=== PATIENT | female | born 1930 | race Caucasian/White ===

== ENCOUNTER 2018-07-11 15:25 | Emergency (ER) | payer MEDICARE, OTHER ==
[2018-07-11 17:07] LABS: #Lymphocytes 0.8 thou/uL (1.20-3.40); #Monocytes 0.6 thou/uL (0.11-0.59); #Neutrophils 6.5 thou/uL (1.40-6.50); %Basophils 0.1 % (0.0-1.0); %Eosinophils 0.4 % (0.0-10.0); %Lymphocytes 10.3 % (21.0-51.0); %Monocytes 7.4 % (0.0-10.0); %Neutrophils 81.8 % (42.0-75.0); Mean Corpuscular HGB CONC 31.9 g/dL (32.0-36.0); Mean Corpuscular Hemoglobin 30.3 pg (27.0-31.0); Mean Corpuscular Volume 94.8 fL (78.0-98.0); Platelet Count 160 thou/uL (130-400); RBC Distribution Width 16.1 % (11.5-14.5); Red Blood Cell (RBC) Count 3.65 mill/uL (4.20-5.40); White Blood Cell (WBC) Count 7.9 thou/uL (4.8-10.8)
--- NOTE | 2018-07-11 17:18 | RAD ---
AP PELVIS: HISTORY: Fall with left hip pain. FINDINGS: The bones appear somewhat demineralized. There are arthritic changes of the lower lumbar spine. Vas cular calcifications are noted. Moderate arthritic changes of the right hip are present. There are mild arthritic changes of the left hip. Some subtle irregularity to the left inferior pubi c ramus. This raises the possibility of a subtle occult fracture. Left hip films may be helpful in further assessment. IMPRESSION: Questionable nondisplaced left inferior pubic ramus fracture. POS: SAMANTHA
[2018-07-11 17:29] LABS: ALT (SGPT) 15 U/L (8-55); AST (SGOT) 23 U/L (5-34); Albumin 3.8 g/dL (3.4-4.8); Alkaline Phosphatase 85 U/L (40-150); Anion Gap 15 mmol/L (10-20); BUN (Urea Nitrogen) 38 mg/dL (9.8-20.1); Bilirubin, Total 1.2 mg/dL (0.2-1.2); Calc. Creatinine Clearance 0 mL/min (70-130); Calcium 10.4 mg/dL (7.8-10.44); Carbon Dioxide 30 mmol/L (23-31); Chloride 95 mmol/L (98-107); Estimated GFR-MDRD 20; Globulin 2.7 g/dL (2.4-3.5); Glucose 131 mg/dL (83-110); Potassium 3.5 mmol/L (3.5-5.1); Protein, Total 6.5 g/dL (6.0-8.3); Sodium 136 mmol/L (136-145)
[2018-07-11 18:08] LABS: Bilirubin Negative (Negative); Blood, Urine Negative (Negative); Clarity CLEAR (Clear); Glucose, Urine (Dipstick) Negative (Negative); Leukocyte Negative (Negative); Nitrite Negative (Negative); Protein, Urine (Dipstick) Negative (Neg-Trace); Urobilinogen 0.2 mg/dL (0.2-1.0)
--- NOTE | 2018-07-11 18:13 | RAD ---
LEFT HIP TWO VIEWS: HISTORY: Fall with left hip pain. FINDINGS: The bones are demineralized. There is some mild arthritic change of the hip. There are no signs of any femoral neck fracture. There is some slight irregularity to the left inferior pubic ramus and so me subtle irregularity to the left side of the symphysis. These changes could represent subtle occul t areas of fracture. IMPRESSION: Findings that were suspicious for some subtle occult fractures along the left side of the symphysis a nd the left inferior pubic ramus. No evidence of any femoral neck fracture. Vascular calcifications are seen. POS: MARCUS
--- NOTE | 2018-07-11 18:14 | RAD ---
LEFT HUMERUS TWO VIEWS: HISTORY: Fall with pain in arm. FINDINGS: The bones are demineralized. There are no signs of fracture. IMPRESSION: No evidence of fracture. POS: MARCUS
--- NOTE | 2018-07-11 18:14 | RAD ---
LEFT SHOULDER THREE VIEWS: HISTORY: Fall with shoulder pain. FINDINGS: The bones are demineralized. There are some mild arthritic changes of the glenohumeral and AC joints . There are no signs of fracture or dislocation. IMPRESSION: No evidence of fracture. POS: SAMANTHA
--- NOTE | 2018-07-11 18:51 | CT ---
CT BRAIN WITHOUT CONTRAST: HISTORY: Fall. Patient on anticoagulants. FINDINGS: There are changes of cortical atrophy and chronic small vessel ischemic disease. The ventricular siz e is appropriate, and the basilar cisterns are patent. No evidence of acute infarct, hemorrhage, mid line shift, or abnormal extraaxial fluid collections are seen. The bony calvarium is intact. The vi sualized paranasal sinuses and mastoid air cells are well aerated. IMPRESSION: No CT evidence of acute intracranial process. POS: MONTEZA
--- NOTE | 2018-07-16 15:27 | EKG ---
Test Reason : Blood Pressure : / mmHG Vent. Rate : 080 BPM Atrial Rate : 083 BPM P-R Int : 000 ms QRS Dur : 078 ms QT Int : 394 ms P-R-T Axes : 000 -62 -30 degrees QTc Int : 454 ms Poor data quality, interpretation may be adversely affected Atrial fibrillation Left axis deviation Nonspecific T wave changes Abnormal ECG Confirmed by JUAN MANUEL LATHAM M.D. ([id number]), make up editor CYRUS VARGAS ([id number]) on 07/16/2018 3:26:49 PM Referred By: Confirmed By:JUAN MANUEL LATHAM M.D.
== END 2018-07-11 19:22 | disposition home or self-care (01) ==
LOC: ERS 15:25
DX: S32.592A Other specified fracture of left pubis, initial encounter for closed fracture (principal); I12.9 Hypertensive chronic kidney disease with stage 1 through stage 4 chronic kidney disease, or unspecified chronic kidney disease; N18.9 Chronic kidney disease, unspecified; D64.9 Anemia, unspecified; E78.5 Hyperlipidemia, unspecified; F03.90 Unspecified dementia, unspecified severity, without behavioral disturbance, psychotic disturbance, mood disturbance, and anxiety; Z79.899 Other long term (current) drug therapy; W17.89XA Other fall from one level to another, initial encounter
CPT/HCPCS: 36415; 70450; 72170; 80053; 81003; 85025; 93005

== ENCOUNTER 2018-08-15 23:10 | Inpatient (IN) | payer MEDICARE ==
[2018-08-16 00:21] LABS: #Eosinphils 0.1 thou/uL (0.0-0.7); #Lymphocytes 1.7 thou/uL (1.20-3.40); #Monocytes 0.5 thou/uL (0.11-0.59); #Neutrophils 3.9 thou/uL (1.40-6.50); %Basophils 0.2 % (0.0-1.0); %Eosinophils 1.1 % (0.0-10.0); %Lymphocytes 27.1 % (21.0-51.0); %Monocytes 8.6 % (0.0-10.0); Hemoglobin 12.3 g/dL (12.0-16.0); Mean Corpuscular HGB CONC 30.5 g/dL (32.0-36.0); Mean Corpuscular Hemoglobin 30.7 pg (27.0-31.0); Mean Platelet Volume 7.8 fL (7.4-10.4); Platelet Count 178 thou/uL (130-400); RBC Distribution Width 16.7 % (11.5-14.5); White Blood Cell (WBC) Count 6.2 thou/uL (4.8-10.8)
[2018-08-16 00:40] LABS: ALT (SGPT) 37 U/L (8-55); AST (SGOT) 50 U/L (5-34); Albumin 3.7 g/dL (3.4-4.8); Alkaline Phosphatase 164 U/L (40-150); Anion Gap 21 mmol/L (10-20); BUN (Urea Nitrogen) 41 mg/dL (9.8-20.1); Bilirubin, Total 1.6 mg/dL (0.2-1.2); CK (CPK) 68 U/L (29-168); Calc. Creatinine Clearance 0 mL/min (70-130); Calcium 10.2 mg/dL (7.8-10.44); Carbon Dioxide 16 mmol/L (23-31); Chloride 105 mmol/L (98-107); Estimated GFR-MDRD 19; Globulin 2.3 g/dL (2.4-3.5); Glucose 92 mg/dL (83-110); Lipase 28 U/L (8-78); Potassium 5.3 mmol/L (3.5-5.1); Sodium 137 mmol/L (136-145)
[2018-08-16 01:13] LABS: INR-International Normal Ratio 3.4; PTT 41.3 SEC (22.9-36.1); Prothrombin Time 34.5 SEC (12.0-14.7)
[2018-08-16] MEDS ORDERED: Aspirin Chewable 81 MG TAB ONE (01:31)
[2018-08-16] MEDS ORDERED: Furosemide 40 MG/4 ML VIAL ONE (02:09)
[2018-08-16] MEDS ORDERED: Ondansetron PF 4 MG/2 ML Vial IVP PRN (02:44)
[2018-08-16] MEDS ORDERED: Senokot S 8.6-50 MG TAB PO PRN (02:44)
[2018-08-16] MEDS ORDERED: Acetaminophen 325 MG TAB PO PRN (02:44)
[2018-08-16 04:07] LABS: #Eosinphils 0.1 thou/uL (0.0-0.7); #Lymphocytes 1.5 thou/uL (1.20-3.40); #Monocytes 0.5 thou/uL (0.11-0.59); #Neutrophils 4.1 thou/uL (1.40-6.50); %Basophils 0.3 % (0.0-1.0); %Eosinophils 1.1 % (0.0-10.0); %Lymphocytes 24.9 % (21.0-51.0); %Monocytes 8.1 % (0.0-10.0); %Neutrophils 65.7 % (42.0-75.0); Hemoglobin 11.7 g/dL (12.0-16.0); Mean Corpuscular HGB CONC 30.7 g/dL (32.0-36.0); Mean Corpuscular Hemoglobin 30.5 pg (27.0-31.0); Mean Corpuscular Volume 99.3 fL (78.0-98.0); Mean Platelet Volume 7.7 fL (7.4-10.4); Platelet Count 179 thou/uL (130-400); RBC Distribution Width 16.8 % (11.5-14.5); Red Blood Cell (RBC) Count 3.85 mill/uL (4.20-5.40); White Blood Cell (WBC) Count 6.2 thou/uL (4.8-10.8)
[2018-08-16 04:26] LABS: Anion Gap 21 mmol/L (10-20); BUN (Urea Nitrogen) 41 mg/dL (9.8-20.1); Calc. Creatinine Clearance 0 mL/min (70-130); Carbon Dioxide 16 mmol/L (23-31); Cardiac Risk 2.8 (Less than 4.5); Chloride 105 mmol/L (98-107); Cholesterol 116 mg/dl (< 200 Desired); Estimated GFR-MDRD 19; Glucose 88 mg/dL (83-110); HDL Cholesterol 42 mg/dL (>60 Neg Risk); LDL Cholesterol, Calculated 60 mg/dL; Potassium 5.1 mmol/L (3.5-5.1); Sodium 137 mmol/L (136-145); Triglycerides 71 mg/dL (Less than 150)
--- NOTE | 2018-08-16 04:33 | HP ---
CHIEF COMPLAINT: Shortness of breath. HISTORY OF PRESENT ILLNESS: The patient is an 88-year-old female who lives with her daughter. She has a history of chronic kidney disease, hypertension, dementia, and atrial fibrillation, who comes to the hospital with complaints of shortness of breath, chest pain, and wheezing. The patient's daughter who was at the bedside stated that the patient today had an accident in bed. She had a bowel movement in bed and when the patient got up with her walker to walk to the bathroom on her way back from the bathroom, she started breathing very heavily, started having some wheezing and then when her daughter asked her if she was having chest tightness, she said yes she had some chest tightness and the patient also was noted to be diaphoretic. The patient has a history of dementia and is unable to really provide any more further history. The patient's daughter has noticed that for the past few months she has lost about 9 pounds, is not eating or drinking very much and also is declining in terms of communication and uses only sign languages or hand gestures. PAST MEDICAL HISTORY: She has a history of atrial fibrillation, on Eliquis, history of hypertension, history of chronic kidney disease, history of dementia. She also has had multiple falls. She has had history of TB which is treated. Also, has had a fractured vertebra and has fractured her pelvic x2. PAST SURGICAL HISTORY: She has had a cholecystectomy, hysterectomy. She has had a biopsy of her nodule outside the lung. ALLERGIES: THE PATIENT HAS ALLERGY TO CODEINE AND MORPHINE. MEDICATIONS: As of the following. She is on Eliquis 2.5 mg twice a day, amitriptyline 50 mg at bedtime, amlodipine 10 mg daily, aspirin 81 mg daily, Lasix 40 mg b.i.d., lovastatin 20 mg at bedtime, metoprolol 100 mg daily. FAMILY HISTORY: No history of arrhythmias. No history of heart disease. SOCIAL HISTORY: She never smoked. Does not drink any alcohol. No drug abuse. She is a do not resuscitate per her daughter, Kristie. REVIEW OF SYSTEMS: Unable to obtain from this patient. She has significant dementia. PHYSICAL EXAMINATION: VITAL SIGNS: Are as of the following; temperature of 97.5, respirations of 22, saturations 97% on 2 L, blood pressure 129/71, 95 pulse. GENERAL: She is awake, alert, oriented to herself. CV: S1 and S2 present. No murmurs, rubs, or gallops. LUNGS: She has crackles to bilateral lower lung bases. ABDOMEN: Soft. Bowel sounds are present x2. She does have some pain on palpation of her left lower quadrant. NEUROVASCULAR: No focal deficits noted. She is able to move bilateral upper and bilateral lower extremities. SKIN: No cuts, lesions, or bruises noted. HEENT: Normocephalic, atraumatic. No lymphadenopathy noted. Pupils are equal, reactive to light. Mucous membranes are moist. LABORATORY RESULTS: As of the following. The patient was found to have WBC of 6.2, hemoglobin of 12.3, hematocrit of 40.3, platelets 179. Chemistry; sodium of 137, potassium of 5.3, BUN of 41, creatinine of 2.45, bilirubin of 1.6. Her BNP was 3010. Her EKG appears to be in atrial fibrillation. Troponin x1 is negative. We will continue to monitor. She also had a chest x-ray, based on my interpretation, possible some mild effusion to her left lower lung area, otherwise appears to be pretty stable. ASSESSMENT AND PLAN: The patient is a very pleasant 88-year-old female who presents to the hospital with complaints of shortness of breath. 1. Shortness of breath, could be secondary to mild acute on chronic diastolic heart failure versus coronary artery disease. She was not in atrial fibrillation with rapid ventricular rate. We will trend her troponins x3. No significant changes on her EKG. Cardiology has been consulted. She has been given some Lasix IV. However, she does not have significant signs of heart failure. She has mild crackles to bilateral lower bases. She has no lower extremity edema. We will continue to monitor. 2. We will also get an echocardiogram since she has not had one since 2016. 3. Acute kidney injury with chronic kidney disease, mildly elevated creatinine. We will continue to monitor her closely. The patient's daughter states that she has not been eating or drinking very much and has lost some significant amount of weight. 4. Elevated BNP. I am not sure if this is most likely secondary to her heart failure. However, she also has chronic kidney disease. We will continue to monitor. 5. Elevated D-dimer. I did have a talk with the patient's daughter stating that if I do get a CTA she note that will require contrast and that might just hurt her kidneys more. She is currently anticoagulated on Eliquis and according to her she has been very good about taking her medications. The patient was not known to be hypoxic either. We will just hold off on the CTA for now. 6. Hyperkalemia. We will continue to monitor. We will repeat her labs later on in the morning. Also, we will check a KUB since she is having some lower abdominal pain and also we will check her urine to make sure that she does not have a urinary tract infection. Job ID: [id number]
--- NOTE | 2018-08-16 08:16 | RAD ---
CHEST 1 VIEW: INDICATION: Chest pain. COMPARISON: Prior examination dated 05/07/2013. FINDINGS: There is cardiomegaly, pulmonary vascular congestion, and bilateral pleural effusions, left greater t byrnes right. There is airspace opacity in the left lower lobe. No acute osseous abnormality is eviden t. IMPRESSION: 1. Findings suspicious for congestive heart failure. 2. Airspace opacity in the left lower lobe may reflect atelectasis or pneumonia. Recommend correlat ion and radiographic followup. POS: BH
--- NOTE | 2018-08-16 09:17 | RAD ---
RADIOGRAPH ABDOMEN ONE VIEW: DATE: 08-16-18 TIME: 6:23 A.M. HISTORY: 88-year-old female with abdominal pain. FINDINGS: Cluster of surgical clips in the right upper quadrant. Another cluster of surgical clips in the right lower quadrant. Nonobstructive bowel gas pattern. IMPRESSION: 1. No evidence of small bowel obstruction. 2. Status post cholecystectomy. 3. Status post right lower quadrant/right pelvic surgery. POS: SAMANTHA
[2018-08-16] MEDS: Apixaban 2.5 MG TAB PO SCH ×2 (13:54→20:23)
[2018-08-16] MEDS: Furosemide 40 MG/4 ML VIAL SLOW IVP SCH ×2 (13:54→14:02)
--- NOTE | 2018-08-17 07:49 | PDOC.PN ---
- Subjective Encounter Start Date: 08/17/18 Encounter Start Time: 10:40 Subjective: Patient without further shortness of breath. No chest pain. No further -: diarrhea since in the hospital. - Objective Resuscitation Status - Order Detail: 08/16/18 02:44 Resuscitation Status Routine Resuscitation Status: DNAR: NO Resuscitation Discussed with: daughter michelle COWART Reviewed: Yes Vital Signs & Weight: Vital Signs (12 hours) Temp Pulse Resp BP Pulse Ox 08/17/18 07:21 94 L 08/17/18 03:51 97.6 F 90 20 146/67 H 94 L 08/16/18 19:50 97.7 F 91 18 109/55 L 93 L Weight Weight 108 lb 8 oz I&O: 08/16/18 08/17/18 08/18/18 06:59 06:59 06:59 Intake Total 240 Output Total 700 Balance -460 Result Diagrams: 08/16/18 03:23 08/16/18 03:23 Phys Exam - Physical Examination Constitutional: NAD HEENT: moist MMs Respiratory: no wheezing, no rales, no rhonchi Cardiovascular: no significant murmur, irregular Gastrointestinal: soft Musculoskeletal: no edema Neurological: non-focal, moves all 4 limbs Psychiatric: normal affect Deviation from normal: Oriented to person and place only which is her baseline per family Dx/Plan (1) Diastolic CHF, acute Code(s): I50.31 - ACUTE DIASTOLIC (CONGESTIVE) HEART FAILURE Status: Acute Comment: EF 60-65% in 2016, repeat ECHO pending, diuresing (2) CKD (chronic kidney disease) stage 4, GFR 15-29 ml/min Code(s): N18.4 - CHRONIC KIDNEY DISEASE, STAGE 4 (SEVERE) Status: Chronic Comment: Creatinine about baseline, will monitor renal function with diuresis (3) Atrial fibrillation Code(s): I48.91 - UNSPECIFIED ATRIAL FIBRILLATION Status: Acute Qualifiers: Atrial fibrillation type: chronic Qualified Code(s): I48.2 - Chronic atrial fibrillation Comment: rate controlled (4) Dementia Code(s): F03.90 - UNSPECIFIED DEMENTIA WITHOUT BEHAVIORAL DISTURBANCE Status: Chronic Comment: Progressive - Plan cont current plan of care, PT/OT Cardiology and Nephrology consulted -: Diuresing patient as she appears a little fluid overloaded, however I -: suspect her decline is more related to her progressive dementia * . - Discharge Day Encounter end time: 10:50
[2018-08-17] MEDS: Apixaban 2.5 MG TAB PO SCH ×2 (08:21→20:46)
[2018-08-17] MEDS: Furosemide 40 MG/4 ML VIAL SLOW IVP SCH (08:21)
--- NOTE | 2018-08-17 09:35 | CON ---
DATE OF CONSULTATION: RENAL MEDICINE HISTORY OF PRESENT ILLNESS: Ms. Lees is an 88-year-old white female, who has history of chronic renal failure from a presumed hypertensive nephropathy and admitted for CHF. Currently, receiving diuretics. This morning, her breathing is much better. We are following up this patient for her chronic renal failure. HOME MEDICATIONS: Include; 1. Eliquis 2.5 mg twice a day. 2. Amitriptyline 50 mg at bedtime. 3. Amlodipine 10 mg tablet once a day. 4. Aspirin 81 mg tablet once a day. 5. Currently Lasix is 40 mg IV q.12. 6. Lovastatin 20 mg at bedtime. 7. Metoprolol 100 mg once a day. PAST MEDICAL HISTORY: Chronic renal failure from a presumed hypertensive nephropathy, longstanding history of hypertension, atrial fibrillation, history of dementia, status post treatment of TB, DJD. PAST SURGICAL HISTORY: Status post cholecystectomy, status post hysterectomy, status post biopsy of lung nodule. ALLERGIES: CODEINE AND MORPHINE. TRAUMA: The patient is status post fall. IMMUNIZATION: Up-to-date. HOSPITALIZATIONS: Please see past medical history. FAMILY HISTORY: No family history of ESRD. SOCIAL HISTORY: The patient lives in [facility]. She has one daughter. Sedentary lifestyle. Currently, no smoking or alcohol intake. No drug abuse. Status post blood transfusion. REVIEW OF SYSTEMS: No chest pain. Positive for mild shortness of breath. No nausea. No vomiting. No diarrhea. No constipation. No productive cough. No dysuria. No urinary frequency. PHYSICAL EXAMINATION: VITAL SIGNS: Blood pressure 142/71, heart rate 87, respiratory rate 16, temperature 96, pulse ox 93%. GENERAL: Noted to be awake, supine, comfortable, not in overt distress. SKIN: Adequate turgor. HEENT: She has a pinkish conjunctivae. Anicteric sclerae. No neck mass. No carotid bruits. No JVD. CHEST: No deformities. LUNGS: Clear breath sounds. HEART: Normal sinus rhythm. No murmur. No gallops or rubs. ABDOMEN: Globular, soft, and nontender. No masses. EXTREMITIES: No edema. No deformities. LABORATORY DATA: Laboratories of August 16, 2018; sodium 137, potassium 5.1, chloride 105, carbon dioxide 16, BUN 41, creatinine 2.38, glucose 88, calcium 8.0, cholesterol 116. Chest x-ray, increased lung markings. ASSESSMENT AND PLAN: 1. Chronic renal failure from a presumed hypertensive nephropathy-she is at baseline renal function. There is no indication for any dialytic intervention. She does have a functional AV fistula and should the occasion arises where she will need dialysis we can initiate her very easily. For the moment, agree with current management. Continue diuretics. 2. Please note her shortness of breath is much improved with the current diuretic regimen. The patient is currently at stage 4 chronic renal failure. Her baseline GFR 19 mL/minute. We will recheck basic metabolic panel and CBC in a.m. Job ID: [id number]
[2018-08-17 13:15] VITALS: BMI 18.6
--- NOTE | 2018-08-17 19:15 | RAD ---
CHEST 2 VIEWS: Date: 08/17/18 HISTORY: VQ scan correlation. Evaluate for pulmonary artery embolism. Chest pain. COMPARISON: 08/15/18. FINDINGS: Stable cardiac silhouette. Stable hyperinflation. Persistent opacification of the lung bases suggesti ng parenchymal change with superimposed left-sided pleural effusion. There is no pneumothorax. Chroni c compression fracture at L1 results in kyphosis and vertebra plana. IMPRESSION: 1. Chronic changes of lung parenchyma. 2. Bibasilar opacities as detailed above. There is concern for congestive heart failure with possibl e superimposed pneumonia or aspiration of left lung base. Continued surveillance is recommended. POS: PPP
--- NOTE | 2018-08-17 19:34 | NM ---
NUCLEAR MEDICINE VENTILATION PERFUSION IMAGING: Date: 08/17/18 INDICATION: Shortness of breath with wheezing and chest tightness. RADIOPHARMACEUTICAL: 8.6 mCi Xenon inhaled. 6.3 mCi technetium-99m MAA IV. FINDINGS: Ventilation imaging reveals mild retention, but otherwise homogeneous distribution throughout the rebecca gs. Evaluation of perfusion imaging reveals a generalized heterogeneity with multiple small areas of photopenic deficiency within each lung. No moderate or large defects are seen. Reference is made to radiograph of chest from same date. IMPRESSION: 1. Intermediate probability VQ scan. 2. Mild retention of radiotracer on ventilation imaging indicating COPD. POS: SAMANTHA
--- NOTE | 2018-08-17 20:27 | CON ---
DATE OF CONSULTATION: 08/17/2018 INDICATION FOR CONSULTATION: An 88-year-old female with a history of hypertension, atrial fibrillation, which is chronic and some dementia, who is admitted with history of diarrhea and shortness of breath. HISTORY OF PRESENT ILLNESS: This is very unfortunate 88-year-old female, who followed for quite some time. She has a history of chronic kidney disease, chronic atrial fibrillation, hypertension, dementia. She unfortunately still lives by herself, which most likely is somewhat dangerous, but she does have family members, who check on her routinely throughout the day. Apparently, she had been having some problems with diarrhea and felt very weak and then became short of breath and her family brought her to the emergency room. She does have dementia and some of her history is obviously not completed and certainly I would not feel this is adequate or accurate information. At this time, she denied any chest pain. Cardiac enzymes are negative for any of myocardial infarction. She did have an elevated BNP of over 3000, but does have a history of diastolic dysfunction. Echocardiogram today also showed ejection fraction of 60% to 65% with diastolic dysfunction and laboratory data reflects her chronic kidney disease with a creatinine of 2.38. At this time, she is very comfortable. She denies any shortness of breath or any other discomfort at this time. PAST MEDICAL HISTORY: Otherwise, her past medical history is significant for the chronic kidney disease, atrial fibrillation, hypertension, dementia, history of TB in the past, degenerative joint disease. PAST SURGICAL HISTORY: She has had a cholecystectomy, hysterectomy. She has had a lung nodule removed or biopsied. She has had AV fistula placed in the past due to her kidney disease. She has also had pelvic fractures. ALLERGIES: SHE IS ALLERGIC TO MORPHINE AND CODEINE. MEDICATIONS: Prior to admission include: 1. Eliquis. 2. Amitriptyline. 3. Amlodipine. 4. Aspirin. 5. Lasix. 6. Lovastatin. 7. Metoprolol. FAMILY HISTORY: Noncontributory. There is no early history of heart disease. SOCIAL HISTORY: There is no history of alcohol or tobacco abuse. She still lives alone. REVIEW OF SYSTEMS: Again, this is inaccurate due to her dementia. Family members are not available at the time. PHYSICAL EXAMINATION: GENERAL: Reveals an elderly female, who is in no acute distress. VITAL SIGNS: Blood pressure 142/71, heart rate is 88 and irregular, and respiratory rate 16. She is afebrile. HEENT: Shows the head to be normocephalic and atraumatic. Carotid pulses are present. I did not hear any bruits. CHEST: Clear to auscultation. I did not hear any significant rales, rhonchi, or wheezing. She does have decreased breath sounds in the right base, otherwise unremarkable. ABDOMEN: Soft and nontender. Positive bowel sounds are present. CARDIOVASCULAR: Reveals an irregularly irregular rhythm. I do not hear any gross murmurs. There is no lower extremity edema. Pedal pulses are present. NEUROLOGIC: She obviously has dementia, but there are no gross focal motor deficits noted. SKIN: Warm and dry. LABORATORY DATA: Noted for the potassium of 5.1, creatinine 2.38, BUN was 21. Hemoglobin 11.7, WBC of 6.2. Her BNP was 3010. INR 3.4. Cardiac enzymes were negative. Also, EKG shows atrial fibrillation, but no acute changes. Chest x-ray showed small bilateral pleural effusions. IMPRESSION: 1. Congestive heart failure exacerbation due to diastolic heart failure with BNP elevated and showed some pleural effusions. These are not large, but small pleural effusions. We will continue with some mild diuretics and hopefully she will be able to be discharged. She was having some diarrhea previously prior to being admitted and I would suspect that she would already be somewhat volume controlled due to the diarrhea. 2. Acute on chronic kidney disease. She has been seen by the marketing operations associate. Need to manage her medications, but this time appears to be relatively stable. No indication for dialysis. 3. Elevated BNP due to diastolic heart failure. At this time, more than happy to continue to follow the patient with you. I have reviewed the medications and would agree with the present protocol. Job ID: [id number]
[2018-08-18 06:58] LABS: Anion Gap 16 mmol/L (10-20); BUN (Urea Nitrogen) 39 mg/dL (9.8-20.1); Calc. Creatinine Clearance 13 mL/min (70-130); Calcium 9.8 mg/dL (7.8-10.44); Carbon Dioxide 27 mmol/L (23-31); Chloride 99 mmol/L (98-107); Estimated GFR-MDRD 21; Glucose 92 mg/dL (83-110); Potassium 3.7 mmol/L (3.5-5.1); Sodium 138 mmol/L (136-145)
--- NOTE | 2018-08-18 07:26 | PDOC.PN ---
- Subjective Encounter Start Date: 08/18/18 Encounter Start Time: 09:20 Subjective: Patient doing well. No complaints. Diuresing well. - Objective Resuscitation Status - Order Detail: 08/16/18 02:44 Resuscitation Status Routine Resuscitation Status: DNAR: NO Resuscitation Discussed with: daughter michelle COWART Reviewed: Yes Vital Signs & Weight: Vital Signs (12 hours) Temp Pulse Resp BP Pulse Ox 08/18/18 06:37 95 08/18/18 04:00 97.4 F L 88 16 132/63 95 08/17/18 19:55 97.4 F L 90 16 148/67 H 95 Weight Admit Weight 113 lb 3 oz Weight 105 lb 6.4 oz I&O: 08/17/18 08/18/18 08/19/18 06:59 06:59 06:59 Intake Total 240 880 Output Total 700 2000 Balance -460 1120 Result Diagrams: 08/16/18 03:23 08/18/18 05:24 Phys Exam - Physical Examination Constitutional: NAD HEENT: moist MMs Respiratory: no wheezing, no rales, no rhonchi Cardiovascular: RRR Gastrointestinal: soft, positive bowel sounds Neurological: non-focal, moves all 4 limbs Psychiatric: normal affect Deviation from normal: Oriented to person Dx/Plan (1) Diastolic CHF, acute Code(s): I50.31 - ACUTE DIASTOLIC (CONGESTIVE) HEART FAILURE Status: Acute Comment: EF 60-65% this hospitalization, pulmonary hypertension, diastolic dysfunction (2) CKD (chronic kidney disease) stage 4, GFR 15-29 ml/min Code(s): N18.4 - CHRONIC KIDNEY DISEASE, STAGE 4 (SEVERE) Status: Chronic Comment: Creatinine about baseline, improved after gentle diuresis (3) Atrial fibrillation Code(s): I48.91 - UNSPECIFIED ATRIAL FIBRILLATION Status: Acute Qualifiers: Atrial fibrillation type: chronic Qualified Code(s): I48.2 - Chronic atrial fibrillation Comment: rate controlled, on low dose Eliquis (4) Dementia Code(s): F03.90 - UNSPECIFIED DEMENTIA WITHOUT BEHAVIORAL DISTURBANCE Status: Chronic Comment: Progressive - Plan cont current plan of care, plan discussed w/ family, PT/OT Switching to oral furosemide tomorrow morning, possibly home -: after that with 24 hour care per family. * . - Discharge Day Encounter end time: 09:30
[2018-08-18] MEDS: Furosemide 40 MG/4 ML VIAL SLOW IVP SCH (07:54)
[2018-08-18] MEDS: Apixaban 2.5 MG TAB PO SCH ×2 (07:54→21:01)
--- NOTE | 2018-08-18 08:33 | PDOC.CTH ---
Cardiology Progress Note - Subjective The pt seen and examined. No overnight events. No cardiac complaints. Family at bedside. - Objective Vital Signs Temp Pulse Resp BP Pulse Ox 08/18/18 07:49 97.5 F L 94 16 135/63 95 08/18/18 06:37 95 08/18/18 04:00 97.4 F L 88 16 132/63 95 Admit Weight 113 lb 3 oz Weight 105 lb 6.4 oz 08/17/18 08/18/18 08/19/18 06:59 06:59 06:59 Intake Total 240 880 Output Total 700 2000 Balance -460 -1120 - Physical Examination General/Neuro: other: (alart but intermittent confusion) Lungs: CTA (diminished at bases) Heart: other: (irregular) Abdomen: soft Extremities: other: (No edema) - Telemetry Telemetry Rhythm: Afib 80s - Labs Result Diagrams: 08/16/18 03:23 08/18/18 05:24 Troponin/CKMB Troponin I 0.021 ng/mL (< 0.028) 08/16/18 06:49 - Assessment/Plan 1. Acute on Chronic Diastolic HF with small Lt pleural effusion - stable with Lasix 40mg IV qd, which will be changed to PO from tomorrow AM. Will resume Toprol with dose of 25mg qd from this AM. Not on SAMI/ARB 2/2 hx of CKD 2. Chronic Afib - well controlled HR; will resume Metoprolol from this AM. On Eliquis 2.5mg BID (age and CKD) 3. HTN - stable 4. Acute on CKD stage 4 - slightly improving 5. Abnormal Pulm perfusion test with mild retention which indicated COPD on - stable with 2.5LNC; 6. Dementia MAR reviewed * Echo on 08/17/2018 showed EF 60-65%, diastolic dysfunction, Pulm HTN (PVSP 64mmHg), mild ERV, mild ERA, trace MR, mild-mod TR, and Lt pleural effusion. Pt. seen and eval. by me. I agree with the A/P by the AVIONICS SYSTEMS REPAIRER.The HR was elevated this PM with the Afib. Will increase betablockers. Review of Systems - Review of Systems Constitutional: reports: no symptoms reported EENTM: reports: no symptoms reported Respiratory: reports: no symptoms reported Cardiac (ROS): reports: no symptoms reported ABD/GI: reports: no symptoms reported : reports: no symptoms reported Musculoskeletal: reports: no symptoms reported
[2018-08-18] MEDS ORDERED: Escitalopram Oxalate 20 mg Tablet PO SCH (21:00)
[2018-08-18] MEDS ORDERED: Simvastatin 5 MG TAB PO SCH (21:00)
[2018-08-18] MEDS: Folic Acid 1 MG TAB PO SCH (21:03)
[2018-08-18] MEDS: Cyanocobalamin (Vitamin B-12) 1,000 MCG TAB PO SCH (21:03)
[2018-08-19 05:46] LABS: Hemoglobin 11.4 g/dL (12.0-16.0); Mean Corpuscular HGB CONC 28.6 g/dL (32.0-36.0); Mean Platelet Volume 7.4 fL (7.4-10.4); Platelet Count 183 thou/uL (130-400); RBC Distribution Width 16.7 % (11.5-14.5); Red Blood Cell (RBC) Count 3.94 mill/uL (4.20-5.40); White Blood Cell (WBC) Count 4.9 thou/uL (4.8-10.8)
[2018-08-19 05:47] LABS: Anion Gap 14 mmol/L (10-20); BUN (Urea Nitrogen) 35 mg/dL (9.8-20.1); Calc. Creatinine Clearance 14 mL/min (70-130); Calcium 10.2 mg/dL (7.8-10.44); Carbon Dioxide 30 mmol/L (23-31); Chloride 96 mmol/L (98-107); Estimated GFR-MDRD 22; Glucose 85 mg/dL (83-110); Hypochromia SLIGHT = 6-15 cells (100X) (0-5/hpf); Lymphocytes 30 % (21-51); MDiff Complete? YES; Monocytes 4 % (0-10); Neutrophil 62 % (42-75); Platelet Morphology Comment Appears Adequate; Potassium 3.5 mmol/L (3.5-5.1); Reactive Lymphocytes 4 % (0-10); Sodium 136 mmol/L (136-145)
[2018-08-19] MEDS ORDERED: Furosemide 40 MG TAB PO SCH (07:30)
--- NOTE | 2018-08-19 08:53 | PRG ---
DATE OF SERVICE: RENAL MEDICINE. SUBJECTIVE: Ms. Lees is an 88-year-old white female, who was admitted for CHF and seen by the Renal Service for chronic renal failure. Renal function has been holding steady. She is tolerating her diuretics. Creatinine this morning was noted to be slightly improved at 2.1. Please note, she came in with a creatinine of 2.38. She voices no new complaints. Her shortness of breath is much improved. OBJECTIVE: VITAL SIGNS: Blood pressure is 129/60, heart rate 86, respiratory rate 20, temperature 97.7, pulse oximetry 95%. GENERAL: Noted to be awake, alert, comfortable, not in distress. SKIN: Adequate turgor. HEENT: Pinkish conjunctivae. Anicteric sclerae. No neck mass. No carotid bruits. No JVD. CHEST: No deformities. LUNGS: Decreased breath sounds. HEART: Normal sinus rhythm. No murmur. No gallops or rubs. ABDOMEN: Globular, soft, nontender. No masses. EXTREMITIES: No edema. No deformities. MEDICATIONS: Medications of August 19, 2017, was reviewed. LABORATORY DATA: Laboratories of August 19, 2018, sodium 136, potassium 3.5, chloride 96, carbon dioxide 30, BUN 35, creatinine 2.11, GFR 22 mL/minute, glucose 85, calcium 10.2. ASSESSMENT AND PLAN: 1. Congestive heart failure-clinically improved. Currently on maintenance diuretics. 2. Chronic renal failure, stable. Actually, renal function is much improved. Overall, agree with current management. Job ID: [id number]
[2018-08-19] MEDS ORDERED: Calcitriol 0.25 MCG CAP PO SCH (09:00)
[2018-08-19] MEDS ORDERED: Loratadine 10 MG TAB PO SCH (09:00)
--- NOTE | 2018-08-19 09:09 | PDOC.PN ---
- Subjective Encounter Start Date: 08/19/18 Encounter Start Time: 10:20 Subjective: Patient doing well. No SOB. No Cough. Ambulating with -: assistance. Patient and family ready for her to go home. - Objective Resuscitation Status - Order Detail: 08/16/18 02:44 Resuscitation Status Routine Resuscitation Status: DNAR: NO Resuscitation Discussed with: daughter michelle COWART Reviewed: Yes Vital Signs & Weight: Vital Signs (12 hours) Temp Pulse Resp BP Pulse Ox 08/19/18 06:44 93 L 08/19/18 04:00 97.7 F 86 20 129/60 95 Weight Admit Weight 113 lb 3 oz Weight 101 lb 6.4 oz I&O: 08/18/18 08/19/18 08/20/18 06:59 06:59 06:59 Intake Total 880 1550 Output Total 2000 800 Balance -1120 750 Result Diagrams: 08/19/18 05:13 08/19/18 05:13 Phys Exam - Physical Examination Constitutional: NAD HEENT: moist MMs Respiratory: no wheezing, no rales, no rhonchi Cardiovascular: no significant murmur, irregular Gastrointestinal: soft, positive bowel sounds Musculoskeletal: no edema Neurological: non-focal, moves all 4 limbs Psychiatric: normal affect Dx/Plan (1) Diastolic CHF, acute Code(s): I50.31 - ACUTE DIASTOLIC (CONGESTIVE) HEART FAILURE Status: Acute Comment: EF 60-65% this hospitalization, pulmonary hypertension, diastolic dysfunction (2) CKD (chronic kidney disease) stage 4, GFR 15-29 ml/min Code(s): N18.4 - CHRONIC KIDNEY DISEASE, STAGE 4 (SEVERE) Status: Chronic Comment: Creatinine about baseline, improved after gentle diuresis (3) Atrial fibrillation Code(s): I48.91 - UNSPECIFIED ATRIAL FIBRILLATION Status: Acute Qualifiers: Atrial fibrillation type: chronic Qualified Code(s): I48.2 - Chronic atrial fibrillation Comment: rate controlled, on low dose Eliquis (4) Dementia Code(s): F03.90 - UNSPECIFIED DEMENTIA WITHOUT BEHAVIORAL DISTURBANCE Status: Chronic Comment: Progressive - Plan cont current plan of care, PT/OT, out of bed/ambulate Patient back on home Lasix, can d/c home today with Home Health for -: halfway and PT. I had an extensive discussion with both daughters about the patient's recent frequent falls. I reviewed the significant risk of stroke and resulting debilitation or vs. the significant risk of intracranial hemorrhage from a fall on Eliquis with resulting debilitation or with both daughters. After extensive discussion both daughters agreed to plan of daily aspirin for stroke prevention. This can be reassessed in the future should she stop falling completely with the caregiver present. Will discharge home with home health for halfway and PT. Family is arranging 24 hour caregiver. - Discharge Day Encounter end time: 10:50
--- NOTE | 2018-08-19 09:28 | PDOC.CTH ---
Cardiology Progress Note - Subjective The pt seen and examined. No overnight events. No cardiac complaints. - Objective Vital Signs Temp Pulse Resp BP Pulse Ox 08/19/18 08:45 97.8 F 88 18 120/56 L 996 H 08/19/18 06:44 93 L 08/19/18 04:00 97.7 F 86 20 129/60 95 Admit Weight 113 lb 3 oz Weight 101 lb 6.4 oz 08/18/18 08/19/18 08/20/18 06:59 06:59 06:59 Intake Total 880 1550 Output Total 2000 800 Balance -1120 750 - Physical Examination General/Neuro: other: (alert, but intermittent confused ) Lungs: CTA Heart: other: (irregular) Abdomen: soft Extremities: other: (No edema) - Telemetry Telemetry Rhythm: AFib/Aflutter 80s - Labs Result Diagrams: 08/19/18 05:13 08/19/18 05:13 Troponin/CKMB Troponin I 0.021 ng/mL (< 0.028) 08/16/18 06:49 - Assessment/Plan 1. Acute on Chronic Diastolic HF with small Lt pleural effusion - stable with Lasix 40mg PO, Toprol 50 mg qd. On SAMI/ARB 2/2 hx of CKD 2. Chronic Afib - well controlled HR with Metoprolol 50mg qd. On Eliquis 2.5mg BID (age and CKD) 3. HTN - stable 4. Acute on CKD stage 4 - managed by welt sewer. 5. Abnormal Pulm perfusion test with mild retention which indicated COPD on - stable with RA now. 6. Dementia MAR reviewed * Echo on 08/17/2018 showed EF 60-65%, diastolic dysfunction, Pulm HTN (PVSP 64mmHg), mild ERV, mild ERA, trace MR, mild-mod TR, and Lt pleural effusion. * Discussed with the pt and family (mainly with daughter) about the benefit and the risk with Eliquis. The pt has fell 2 times in last 3 months and hx of dementia. Per family, she forgets to use a walker. She will have 24/ caregiver after she is d/[place]; however, per family, the caregiver will be d/[place] once the pt can take care of herself. The family concerns about fx of multiple CVAs to the pt's mother. Pt. seen and eval. by me. I agree with the A/P by the LEGAL SUPPORT ANALYST. She is able to ambulate to the bathroom with assistance. Chest clear. Irreg. rhythm. I would suggest ASA for antiplatelet effect. Her risk of falls is significant and other OAC's may be more dangerous than the risk of CVA. Review of Systems - Review of Systems Constitutional: reports: no symptoms reported EENTM: reports: no symptoms reported Respiratory: reports: no symptoms reported Cardiac (ROS): reports: no symptoms reported ABD/GI: reports: no symptoms reported : reports: no symptoms reported Musculoskeletal: reports: no symptoms reported
[2018-08-19] MEDS: Apixaban 2.5 MG TAB PO SCH (09:39)
[2018-08-19] MEDS: Cyanocobalamin (Vitamin B-12) 1,000 MCG TAB PO SCH (09:40)
[2018-08-19] MEDS: Folic Acid 1 MG TAB PO SCH (09:40)
[2018-08-19 17:38] VITALS: BP 137/62; TEMP 97.4
--- NOTE | 2018-08-20 00:14 | DIS ---
DATE OF ADMISSION: 08/16/2018 DATE OF DISCHARGE: 08/19/2018 PRIMARY CARE PHYSICIAN: Ted Brian MD REASON FOR ADMISSION: Shortness of breath. DIAGNOSES AT DISCHARGE: 1. Acute on chronic diastolic congestive heart failure. 2. Chronic kidney disease, stage 4. 3. Chronic atrial fibrillation, rate controlled. 4. Progressive dementia. 5. Recurrent falls. PROCEDURES: 1. Abdominal x-ray showing no evidence of small bowel obstruction. 2. Echocardiogram showing an ejection fraction of 60% to 65%, pulmonary hypertension, right ventricular systolic pressure 64 mmHg and diastolic dysfunction along with left pleural effusion. 3. V/Q scan showing intermediate probability V/Q scan with mild COPD changes. CONSULTATIONS: 1. Cardiology, Nenita Gupta MD. 2. Nephrology, Dr. Moctezuma. SUMMARY OF HOSPITAL COURSE: This is an 88-year-old white female, who lives by herself [facility] from her daughter with progressive dementia and weakness, had been doing fairly well with last fall about 2 years ago, until about 2 months ago, when she started falling repeatedly, especially when there was no one there to warn her about being careful or to remind her to use her walker. The patient had some few days of increased shortness of breath, chest pain, and wheezing. She had an episode of diarrhea in the bed and when she got up with her walker to go to the bathroom, she started breathing very heavily and having wheezing and chest tightness, so her daughter brought her into the emergency room. The patient was found to be in diastolic congestive heart failure. Her D-dimer was elevated. She had an indeterminate V/Q scan, however, she has been on Eliquis chronically. It is not thought to be at high risk for PE. Her creatinine was elevated at 2.45, was actually near her baseline and actually improved with diuresis, but Dr. Moctezuma was consulted for management of this during her hospitalization. She had some question of abdominal pain. She had a x-ray done of her stomach, which was normal and is resolved. She did not have any more diarrhea in the hospital. The patient improved markedly after diuresis with IV Lasix, was back to her baseline strength and no more shortness of breath or chest tightness. Due to her recurrent falls at home recently, Dr. Gupta and I discussed the patient's blood thinner with her two daughters, who are medical decision makers. I did have an extensive discussion with her about the significant risk of stroke if she does not take Eliquis versus the significant risk of intracranial hemorrhage if she continues to fall on a blood thinner. Her daughters eventually agreed to discontinue the Eliquis and go on with just a baby aspirin daily for stroke prevention with the understanding that this can be readdressed should she stop her recurrent falls and become more stable, especially with 24-hour evaluator transfer students to redirect her using her walker and to being careful. On the day of discharge, the patient was back to her baseline. Her daughters have arranged 24-hour evaluator transfer students and also arranging home health. DISCHARGE MANAGEMENT: Discharged home with [facility] for [facility] and physical therapy. ACTIVITY: As tolerated. Ambulate with walker and assistance only. DIET: Fluid-restricted healthy heart low-sodium diet. MEDICATIONS: 1. Aspirin 81 mg daily. 2. Furosemide 40 mg daily. 3. Metoprolol succinate decreased to 50 mg daily, 30 tablets dispensed. 4. Lovastatin 20 mg at night. 5. Loratadine 10 mg daily. 6. Lexapro 20 mg at night. 7. Vitamin B12 and folic acid one tablet daily. 8. Calcitriol 0.25 mcg daily. 9. Acetaminophen as needed. FOLLOWUP: The patient is to follow up with Dr. Brian On August 23, with Dr. Gupta on September 01, and with Dr. Moctezuma as directed. Arranging the details of this discharge took 35 minutes. Job ID: [id number]
== END 2018-08-19 17:20 | disposition home health service (06) | DRG 291 ==
LOC: ERS 23:10 → ERHOLD 08-16 01:30 → 2NO 08-16 10:20
PROVIDERS: ADMIT Internal Medicine; ATTEND Internal Medicine
DX: I13.0 Hypertensive heart and chronic kidney disease with heart failure and stage 1 through stage 4 chronic kidney disease, or unspecified chronic kidney disease (principal); I50.33 Acute on chronic diastolic (congestive) heart failure; N18.4 Chronic kidney disease, stage 4 (severe); N17.9 Acute kidney failure, unspecified; F03.90 Unspecified dementia, unspecified severity, without behavioral disturbance, psychotic disturbance, mood disturbance, and anxiety; I48.2 Chronic atrial fibrillation; Z91.81 History of falling; M19.90 Unspecified osteoarthritis, unspecified site; Z79.01 Long term (current) use of anticoagulants; Z79.899 Other long term (current) drug therapy; Z79.82 Long term (current) use of aspirin; R19.7 Diarrhea, unspecified; Z88.5 Allergy status to narcotic agent; E87.5 Hyperkalemia
CPT/HCPCS: 36415; 71045; 71046; 74018; 78582; 80048; 80053; 80061; 82550; 83690; 83880; 84484; 85025; 85379; 85610; 85730; 90471; 90662; 93005; 93306; 94760; 96374; A9540; A9558; G0008; J1940

== ENCOUNTER 2018-09-27 01:22 | Emergency (ER) | payer MEDICARE, OTHER ==
[2018-09-27 02:04] LABS: #Eosinphils 0.2 thou/uL (0.0-0.7); #Monocytes 0.8 thou/uL (0.11-0.59); #Neutrophils 3.7 thou/uL (1.40-6.50); %Basophils 0.7 % (0.0-1.0); %Eosinophils 3.2 % (0.0-10.0); %Lymphocytes 29.1 % (21.0-51.0); %Monocytes 11.6 % (0.0-10.0); %Neutrophils 55.4 % (42.0-75.0); Hemoglobin 8.3 g/dL (12.0-16.0); Mean Corpuscular HGB CONC 30.3 g/dL (32.0-36.0); Mean Corpuscular Hemoglobin 30.1 pg (27.0-31.0); Mean Corpuscular Volume 99.5 fL (78.0-98.0); Mean Platelet Volume 7.3 fL (7.4-10.4); Platelet Count 247 thou/uL (130-400); RBC Distribution Width 14.9 % (11.5-14.5); Red Blood Cell (RBC) Count 2.77 mill/uL (4.20-5.40); White Blood Cell (WBC) Count 6.7 thou/uL (4.8-10.8)
[2018-09-27 02:28] LABS: ALT (SGPT) 24 U/L (8-55); AST (SGOT) 32 U/L (5-34); Albumin 3.8 g/dL (3.4-4.8); Alkaline Phosphatase 90 U/L (40-150); Anion Gap 15 mmol/L (10-20); BUN (Urea Nitrogen) 61 mg/dL (9.8-20.1); Bilirubin, Total 0.6 mg/dL (0.2-1.2); Calc. Creatinine Clearance 0 mL/min (70-130); Carbon Dioxide 25 mmol/L (23-31); Chloride 99 mmol/L (98-107); Estimated GFR-MDRD 16; Globulin 2.8 g/dL (2.4-3.5); Glucose 96 mg/dL (83-110); Lipase 90 U/L (8-78); Potassium 4.2 mmol/L (3.5-5.1); Protein, Total 6.6 g/dL (6.0-8.3); Sodium 135 mmol/L (136-145)
[2018-09-27] MEDS ORDERED: Furosemide 40 MG/4 ML VIAL ONE (04:16)
--- NOTE | 2018-09-27 08:07 | RAD ---
SINGLE VIEW CHEST: Date: 09/27/18 COMPARISON: 08/15/18. HISTORY: Dyspnea and shortness of breath. Chest pain. FINDINGS: Single view of the chest shows an enlarged but stable cardiomediastinal silhouette. Increased interst itial lung markings are present. Blunting of both costophrenic angles may represent small pleural eff usions. This is unchanged compared to the prior exam. IMPRESSION: Stable exam. POS: [facility]
== END 2018-09-27 04:40 | disposition home or self-care (01) ==
LOC: ERS 01:22
DX: I11.0 Hypertensive heart disease with heart failure (principal); I50.9 Heart failure, unspecified; I48.91 Unspecified atrial fibrillation; F03.90 Unspecified dementia, unspecified severity, without behavioral disturbance, psychotic disturbance, mood disturbance, and anxiety; F32.9 Major depressive disorder, single episode, unspecified; Z79.82 Long term (current) use of aspirin; Z79.899 Other long term (current) drug therapy; Z79.01 Long term (current) use of anticoagulants
CPT/HCPCS: 36415; 71045; 80053; 83690; 83880; 84484; 85025; 93005; 94760; 96374; J1940

== ENCOUNTER 2018-12-29 14:18 | Emergency (ER) | payer MEDICARE, OTHER ==
--- NOTE | 2018-12-29 15:00 | RAD ---
Portable upright frontal chest radiograph: 12/29/2018 COMPARISON: 09/27/2018 HISTORY: Fall, trauma, pain FINDINGS: There is mild elevation of the right hemidiaphragm. Heart and mediastinal contours are stab le. There is atherosclerotic calcification of the aortic arch. No pneumothorax or pleural fluid. No lobar consolidation or alveolar edema. There are postoperative clips in the right upper quadrant and adjacent to the right humerus. Pression: Chronic findings as above.
--- NOTE | 2018-12-29 15:00 | RAD ---
2 views right humerus. history: Fall with right shoulder pain. AP and lateral view right humerus obtained. No evidence of fractures, subluxations or bony lesions seen. IMPRESSION: normal 2 views right humerus.
--- NOTE | 2018-12-29 15:02 | RAD ---
AP view pelvis. HISTORY: Fall with hip pain. AP view pelvis demonstrates healing of the left inferior pubic ramus fracture. No definite evidence of pelvic fractures or bony lesions seen. IMPRESSION: Unremarkable AP view pelvis. Moderate right hip osteoarthritis seen.
== END 2018-12-29 15:51 | disposition home or self-care (01) ==
LOC: ERS 14:18 → RESEARCH 14:18 → ERS 15:51
DX: M25.511 Pain in right shoulder (principal); M25.551 Pain in right hip; I48.91 Unspecified atrial fibrillation; E78.5 Hyperlipidemia, unspecified; I10 Essential (primary) hypertension; F03.90 Unspecified dementia, unspecified severity, without behavioral disturbance, psychotic disturbance, mood disturbance, and anxiety; F32.9 Major depressive disorder, single episode, unspecified; Z79.899 Other long term (current) drug therapy; Z79.82 Long term (current) use of aspirin; W19.XXXA Unspecified fall, initial encounter
CPT/HCPCS: 71045; 72170